=== PATIENT | female | born 1955 | race Caucasian/White ===

== ENCOUNTER 2019-02-04 18:42 | Inpatient (IN) | payer BC ==
[~2019-02-04] VITALS: Ht 160 cm; Wt 97.5 kg
[~2019-02-04 18:42] MED LIST: LEVO100T9 PO
[2019-02-04 18:44] VITALS: BP_SYST 132
[2019-02-04] MEDS ORDERED: MORPHINE 2 MG/ML INJ. SYRINGE IM ONE (20:30)
[2019-02-04] MEDS ORDERED: fentaNYL CITRATE/PF 100 MCG/2 ML AMP IVP ONE ×5 (21:15→23:00)
[2019-02-04 21:16] LABS: BASOPHILS # (AUTO) 0.1 K/uL (0.0-0.2); BASOPHILS % (AUTO) 0.8 % (0.0-2.0); EOSINOPHILS # (AUTO) 0.3 K/uL (0.0-0.4); EOSINOPHILS % (AUTO) 3.4 % (0.0-4.0); HEMOGLOBIN 15.3 g/dL (12.0-16.0); LYMPHOCYTES # (AUTO) 1.7 K/uL (1.0-5.5); LYMPHOCYTES % (AUTO) 19.6 % (20.5-51.5); MEAN CORPUSCULAR HEMOGLOBIN 30 pg (27-31); MEAN CORPUSCULAR HGB CONC 34 % (32-36); MEAN CORPUSCULAR VOLUME 87 fL (79.0-98.0); MONOCYTES # (AUTO) 0.6 K/uL (0.0-1.0); MONOCYTES % (AUTO) 6.6 % (1.7-9.3); NEUTROPHILS # (AUTO) 5.9 K/uL (1.8-7.7); NEUTROPHILS % (AUTO) 69.6 % (40.0-70.0); PLATELET COUNT (AUTO) 343 K/uL (130-430); RED BLOOD CELL COUNT(AUTO) 5.15 MIL/uL (4.2-6.2); RED CELL DISTRIBUTION WIDTH 14.1 % (9.0-15.0); WHITE BLOOD COUNT (AUTO) 8.5 K/uL (4.8-10.8)
[2019-02-04 21:29] LABS: CALCIUM 9.2 mg/dL (8.4-11.0); CREATININE 0.97 mg/dL (0.55-1.30); POTASSIUM 3.7 mmol/L (3.5-5.1)
[2019-02-04 21:34] LABS: ALBUMIN 4.1 g/dL (3.4-4.8); TOTAL BILIRUBIN 0.4 mg/dL (0.0-1.0)
[2019-02-05] MEDS ORDERED: MORPHINE 2 MG/ML INJ. SYRINGE IVP PRN ×3 (00:30→06:30)
[2019-02-05] MEDS ORDERED: HEPARIN SODIUM,PORCINE 5000 UNITS/ML VIAL SUBCUT SCH ×2 (00:30→02:30)
[2019-02-05 01:54] VITALS: BP_SYST 128
[2019-02-05] MEDS: NACL 0.9% 1,000 ML IV SCH (02:46)
[2019-02-05] MEDS ORDERED: KETOROLAC TROMETHAMINE 15 MG VIAL IVP PRN (05:15)
[2019-02-05] MEDS ORDERED: ZOLPIDEM TARTRATE 5 MG TABLET PO PRN (06:30)
[2019-02-05] MEDS ORDERED: LORazepam 2 MG/ML VIAL IVP PRN (06:30)
[2019-02-05] MEDS ORDERED: ONDANSETRON HCL 4 MG/2 ML VIAL IVP PRN (06:30)
[2019-02-05] MEDS ORDERED: DOCUSATE SODIUM 100 MG CAPSULE PO PRN (06:30)
[2019-02-05] MEDS ORDERED: MAGNESIUM SULFATE 50 ML IV PRN (06:30)
[2019-02-05] MEDS ORDERED: MUPIROCIN 2% TOPICAL OINTMENT 22 GM NS PRN (06:30)
[2019-02-05] MEDS ORDERED: POTASSIUM CHLORIDE 20 MEQ TAB.PRT.SR PO PRN (06:30)
[2019-02-05] MEDS: HEPARIN SODIUM,PORCINE 5000 UNITS/ML VIAL SUBCUT SCH (10:23)
[2019-02-05] MEDS: KETOROLAC TROMETHAMINE 15 MG VIAL IVP PRN ×4 (10:27→23:47)
[2019-02-05] MEDS ORDERED: LEVOTHYROXINE SODIUM 0.05 MG TABLET PO ONE (11:30)
[2019-02-05 12:45] VITALS: BP_SYST 131
[2019-02-05] MEDS ORDERED: ROCURONIUM BROMIDE 10 MG/ML (ZEMURON) IV ONE (13:30)
[2019-02-05] MEDS ORDERED: PROPOFOL 200MG/ 20ML VIAL (DIPRIVAN) IV ONE (13:30)
[2019-02-05] MEDS ORDERED: SEVOFLURANE 15 MIN GAS INH ONE (13:30)
[2019-02-05] MEDS ORDERED: MIDAZOLAM HCL 5 MG/5 ML VIAL IVP ONE (13:30)
[2019-02-05] MEDS ORDERED: LR 1,000 ML IV.SOLN IV ONE (13:30)
[2019-02-05] MEDS ORDERED: ONDANSETRON HCL 4 MG/2 ML VIAL IVP ONE (13:30)
[2019-02-05] MEDS ORDERED: NS IRRIG SOLN 1000 ML IR ONE (13:30)
[2019-02-05] MEDS ORDERED: BUPIVACAINE /DEX PF 0.75% SPINAL 2 ML AMP INJ ONE (13:30)
[2019-02-05] MEDS ORDERED: fentaNYL CITRATE 250 MCG/5 ML AMP IV ONE (13:30)
[2019-02-05] MEDS ORDERED: BUPIVACAINE LIPOSOME/PF 266 MG/20 ML VIAL INFIL ONE (13:30)
[2019-02-05] MEDS: ACETAMINOPHEN 325 MG TABLET PO PRN ×2 (14:49→21:09)
[2019-02-05 16:41] VITALS: BP_SYST 139
[2019-02-05 20:00] VITALS: BP_SYST 144
[2019-02-05] MEDS: clonazePAM 0.5 MG TABLET PO SCH (21:08)
[2019-02-06 00:12] VITALS: BP_SYST 125
[2019-02-06] MEDS: HEPARIN SODIUM,PORCINE 5000 UNITS/ML VIAL SUBCUT SCH (00:25)
[2019-02-06] MEDS: NACL 0.9% 1,000 ML IV SCH ×3 (00:50→18:31)
[2019-02-06 01:19] LABS: BILIRUBIN,URINE NEGATIVE (NEGATIVE); BLOOD, URINE NEGATIVE (NEGATIVE); CLARITY/URINE CLEAR (CLEAR); COLOR,URINE YELLOW (YELLOW); GLUCOSE,URINE NEGATIVE (NEGATIVE); KETONES,URINE NEGATIVE (NEGATIVE); LEUKOCYTE ESTERASE ,URINE NEGATIVE (NEGATIVE); NITRITE, URINE NEGATIVE (NEGATIVE); PROTEIN URINE NEGATIVE (NEGATIVE); UROBILINOGEN,URINE 0.2 (0.2-1.0)
[2019-02-06] MEDS: KETOROLAC TROMETHAMINE 15 MG VIAL IVP PRN ×5 (05:17→22:34)
[2019-02-06] MEDS ORDERED: COMMUNICATION ORDER XX ONE (05:41)
[2019-02-06 06:37] LABS: BASOPHILS % (AUTO) 0.7 % (0.0-2.0); EOSINOPHILS # (AUTO) 0.4 K/uL (0.0-0.4); EOSINOPHILS % (AUTO) 6.4 % (0.0-4.0); HEMATOCRIT 40.3 % (36-48); HEMOGLOBIN 13.7 g/dL (12.0-16.0); LYMPHOCYTES # (AUTO) 2.5 K/uL (1.0-5.5); LYMPHOCYTES % (AUTO) 36.1 % (20.5-51.5); MEAN CORPUSCULAR HEMOGLOBIN 30 pg (27-31); MEAN CORPUSCULAR HGB CONC 34 % (32-36); MEAN CORPUSCULAR VOLUME 88 fL (79.0-98.0); MONOCYTES # (AUTO) 0.8 K/uL (0.0-1.0); NEUTROPHILS # (AUTO) 3.1 K/uL (1.8-7.7); NEUTROPHILS % (AUTO) 44.8 % (40.0-70.0); PLATELET COUNT (AUTO) 277 K/uL (130-430); RED CELL DISTRIBUTION WIDTH 13.8 % (9.0-15.0); WHITE BLOOD COUNT (AUTO) 6.9 K/uL (4.8-10.8)
[2019-02-06 06:47] LABS: CALCIUM 8.1 mg/dL (8.4-11.0); CREATININE 0.82 mg/dL (0.55-1.30); POTASSIUM 3.6 mmol/L (3.5-5.1)
[2019-02-06] MEDS: LEVOTHYROXINE SODIUM 0.05 MG TABLET PO SCH (07:00)
[2019-02-06 08:00] VITALS: BP_SYST 124
[2019-02-06 12:47] VITALS: BP_SYST 132
[2019-02-06 16:17] VITALS: BP_SYST 146
[2019-02-06 20:00] VITALS: BP_SYST 148
[2019-02-06] MEDS: clonazePAM 0.5 MG TABLET PO SCH (20:37)
[2019-02-06] MEDS: ACETAMINOPHEN 325 MG TABLET PO PRN (20:39)
[2019-02-06] MEDS ORDERED: HEPARIN SODIUM,PORCINE 5000 UNITS/ML VIAL SUBCUT SCH (21:00)
[2019-02-07 01:32] VITALS: BP_SYST 131
[2019-02-07] MEDS: KETOROLAC TROMETHAMINE 15 MG VIAL IVP PRN ×4 (02:36→19:08)
[2019-02-07 06:45] LABS: BASOPHILS % (AUTO) 0.6 % (0.0-2.0); EOSINOPHILS # (AUTO) 0.5 K/uL (0.0-0.4); EOSINOPHILS % (AUTO) 6.7 % (0.0-4.0); HEMATOCRIT 40.7 % (36-48); HEMOGLOBIN 13.5 g/dL (12.0-16.0); LYMPHOCYTES # (AUTO) 1.9 K/uL (1.0-5.5); LYMPHOCYTES % (AUTO) 25.6 % (20.5-51.5); MEAN CORPUSCULAR HEMOGLOBIN 29 pg (27-31); MEAN CORPUSCULAR HGB CONC 33 % (32-36); MEAN CORPUSCULAR VOLUME 89 fL (79.0-98.0); MONOCYTES # (AUTO) 0.7 K/uL (0.0-1.0); NEUTROPHILS # (AUTO) 4.2 K/uL (1.8-7.7); NEUTROPHILS % (AUTO) 57.1 % (40.0-70.0); PLATELET COUNT (AUTO) 254 K/uL (130-430); RED BLOOD CELL COUNT(AUTO) 4.59 MIL/uL (4.2-6.2); RED CELL DISTRIBUTION WIDTH 13.9 % (9.0-15.0); WHITE BLOOD COUNT (AUTO) 7.3 K/uL (4.8-10.8)
[2019-02-07 06:48] LABS: CALCIUM 8.1 mg/dL (8.4-11.0); CREATININE 0.73 mg/dL (0.55-1.30); POTASSIUM 3.7 mmol/L (3.5-5.1)
[2019-02-07 06:51] LABS: PROTHROMBIN TIME 10.4 SECS (9.5-12.5)
[2019-02-07] MEDS: LEVOTHYROXINE SODIUM 0.05 MG TABLET PO SCH (07:00)
[2019-02-07 08:00] VITALS: BP_SYST 140
[2019-02-07] MEDS: NACL 0.9% 1,000 ML IV SCH (11:33)
[2019-02-07] MEDS ORDERED: ENOXAPARIN SODIUM 40 MG/0.4 ML SYRINGE SUBCUT ONE (12:00)
[2019-02-07] MEDS ORDERED: POLYMYXIN 500,000/BACIT.10,000 UNITS in NS IRR 1 L IR ONE (13:45)
[2019-02-07] MEDS ORDERED: LR 1,000 ML IV SCH (14:40)
[2019-02-07] MEDS ORDERED: HYDROmorphone 1 MG INJ. 1 MG/ML AMPUL IVP PRN (14:45)
[2019-02-07] MEDS ORDERED: HYDROmorphone 2 MG/ML VIAL IVP PRN (14:45)
[2019-02-07] MEDS ORDERED: BUPIVACAINE LIPOSOME/PF 266 MG/20 ML VIAL INFIL ONE (15:36)
[2019-02-07 16:00] VITALS: BP_SYST 159
[2019-02-07] MEDS: METOCLOPRAMIDE HCL 10 MG/2 ML VIAL IVP PRN ×2 (16:04→16:20)
[2019-02-07] MEDS ORDERED: HYDROcodone/ACETAMIN 5-325 MG TAB (NORCO/ VICODIN) PO PRN (16:15)
[2019-02-07] MEDS ORDERED: METOCLOPRAMIDE HCL 10 MG/2 ML VIAL ONE (16:17)
[2019-02-07] MEDS: HYDROmorphone 1 MG INJ. 1 MG/ML AMPUL IVP PRN ×2 (16:55→17:10)
[2019-02-07] MEDS ORDERED: HYDROmorphone 1 MG INJ. 1 MG/ML AMPUL ONE (17:03)
[2019-02-07 17:36] VITALS: BP_SYST 151
[2019-02-07 20:00] VITALS: BP_SYST 125
[2019-02-07] MEDS: clonazePAM 0.5 MG TABLET PO SCH (21:56)
[2019-02-07] MEDS: ACETAMINOPHEN 325 MG TABLET PO PRN (21:56)
[2019-02-07] MEDS: CEFAZOLIN 1 GM IVPB PREMIX 50 ML IV SCH (21:57)
[2019-02-08] MEDS: KETOROLAC TROMETHAMINE 15 MG VIAL IVP PRN ×5 (01:47→20:59)
[2019-02-08 03:35] VITALS: BP_SYST 133
[2019-02-08] MEDS: ACETAMINOPHEN 325 MG TABLET PO PRN ×2 (03:55→13:42)
[2019-02-08] MEDS: LEVOTHYROXINE SODIUM 0.05 MG TABLET PO SCH (06:05)
[2019-02-08] MEDS: CEFAZOLIN 1 GM IVPB PREMIX 50 ML IV SCH (06:05)
[2019-02-08 07:12] LABS: BASOPHILS % (AUTO) 0.3 % (0.0-2.0); EOSINOPHILS # (AUTO) 0.2 K/uL (0.0-0.4); EOSINOPHILS % (AUTO) 2.8 % (0.0-4.0); HEMATOCRIT 38.1 % (36-48); HEMOGLOBIN 12.9 g/dL (12.0-16.0); LYMPHOCYTES # (AUTO) 1.5 K/uL (1.0-5.5); LYMPHOCYTES % (AUTO) 17.6 % (20.5-51.5); MEAN CORPUSCULAR HEMOGLOBIN 30 pg (27-31); MEAN CORPUSCULAR HGB CONC 34 % (32-36); MEAN CORPUSCULAR VOLUME 88 fL (79.0-98.0); MONOCYTES # (AUTO) 0.9 K/uL (0.0-1.0); MONOCYTES % (AUTO) 10.5 % (1.7-9.3); NEUTROPHILS # (AUTO) 5.9 K/uL (1.8-7.7); NEUTROPHILS % (AUTO) 68.8 % (40.0-70.0); PLATELET COUNT (AUTO) 250 K/uL (130-430); RED BLOOD CELL COUNT(AUTO) 4.34 MIL/uL (4.2-6.2); RED CELL DISTRIBUTION WIDTH 13.9 % (9.0-15.0); WHITE BLOOD COUNT (AUTO) 8.6 K/uL (4.8-10.8)
[2019-02-08 07:41] LABS: CALCIUM 8.4 mg/dL (8.4-11.0); CREATININE 0.93 mg/dL (0.55-1.30); POTASSIUM 3.5 mmol/L (3.5-5.1)
[2019-02-08 08:14] VITALS: BP_SYST 122
[2019-02-08] MEDS: ENOXAPARIN SODIUM 40 MG/0.4 ML SYRINGE SUBCUT SCH (08:47)
[2019-02-08] MEDS: NACL 0.9% 1,000 ML IV SCH ×2 (10:06)
[2019-02-08 12:15] VITALS: BP_SYST 133
[2019-02-08 16:35] VITALS: BP_SYST 142
[2019-02-08 20:50] VITALS: BP_SYST 128
[2019-02-08] MEDS: clonazePAM 0.5 MG TABLET PO SCH (20:59)
[2019-02-09 00:23] VITALS: BP_SYST 126
[2019-02-09] MEDS: NACL 0.9% 1,000 ML IV SCH ×2 (00:34→20:16)
[2019-02-09] MEDS: KETOROLAC TROMETHAMINE 15 MG VIAL IVP PRN ×3 (01:11→20:26)
[2019-02-09] MEDS: LEVOTHYROXINE SODIUM 0.05 MG TABLET PO SCH (06:37)
[2019-02-09 06:57] LABS: CALCIUM 7.7 mg/dL (8.4-11.0); CHLORIDE 105 mmol/L (98-107); GLUCOSE 96 mg/dL (70-99); POTASSIUM 3.4 mmol/L (3.5-5.1); SODIUM SERUM 134 mmol/L (136-145); UREA NITROGEN, BLOOD 12 mg/dL (8-21)
[2019-02-09 06:58] LABS: BASOPHILS % (AUTO) 0.6 % (0.0-2.0); EOSINOPHILS # (AUTO) 0.4 K/uL (0.0-0.4); EOSINOPHILS % (AUTO) 5.4 % (0.0-4.0); HEMATOCRIT 33.9 % (36-48); HEMOGLOBIN 11.9 g/dL (12.0-16.0); LYMPHOCYTES # (AUTO) 1.9 K/uL (1.0-5.5); LYMPHOCYTES % (AUTO) 24.7 % (20.5-51.5); MEAN CORPUSCULAR HEMOGLOBIN 31 pg (27-31); MEAN CORPUSCULAR HGB CONC 35 % (32-36); MEAN CORPUSCULAR VOLUME 88 fL (79.0-98.0); MONOCYTES # (AUTO) 0.9 K/uL (0.0-1.0); MONOCYTES % (AUTO) 11.9 % (1.7-9.3); NEUTROPHILS # (AUTO) 4.5 K/uL (1.8-7.7); NEUTROPHILS % (AUTO) 57.4 % (40.0-70.0); PLATELET COUNT (AUTO) 234 K/uL (130-430); RED BLOOD CELL COUNT(AUTO) 3.87 MIL/uL (4.2-6.2); RED CELL DISTRIBUTION WIDTH 13.9 % (9.0-15.0); WHITE BLOOD COUNT (AUTO) 7.8 K/uL (4.8-10.8)
[2019-02-09 06:59] LABS: ANION GAP < 3 (5-15); GFR AFRICAN AMERICAN 93 mL/min (>90)
[2019-02-09 08:00] VITALS: BP_SYST 135
[2019-02-09] MEDS: ENOXAPARIN SODIUM 40 MG/0.4 ML SYRINGE SUBCUT SCH (09:17)
[2019-02-09 12:26] VITALS: BP_SYST 118
[2019-02-09] MEDS ORDERED: HYDROCORTISONE 1%, 28.35 GM TOPICAL CREAM TP PRN (13:00)
[2019-02-09 16:25] VITALS: BP_SYST 146
[2019-02-09 20:00] VITALS: BP_SYST 130
[2019-02-09] MEDS: clonazePAM 0.5 MG TABLET PO SCH (20:15)
[2019-02-10 00:33] VITALS: BP_SYST 106
[2019-02-10] MEDS: KETOROLAC TROMETHAMINE 15 MG VIAL IVP PRN (02:15)
[2019-02-10] MEDS: LEVOTHYROXINE SODIUM 0.05 MG TABLET PO SCH (06:52)
[2019-02-10 08:00] VITALS: BP_SYST 140
[2019-02-10] MEDS: ENOXAPARIN SODIUM 40 MG/0.4 ML SYRINGE SUBCUT SCH (08:13)
[2019-02-10 08:48] VITALS: BP_SYST 106
[2019-02-10] MEDS: clonazePAM 0.5 MG TABLET PO PRN (09:30)
[2019-02-10] MEDS: ACETAMINOPHEN 325 MG TABLET PO PRN (09:30)
[2019-02-10 09:55] LABS: BASOPHILS # (AUTO) 0.1 K/uL (0.0-0.2); EOSINOPHILS # (AUTO) 0.5 K/uL (0.0-0.4); HEMATOCRIT 35.6 % (36-48); MEAN CORPUSCULAR VOLUME 88 fL (79.0-98.0); NEUTROPHILS # (AUTO) 4.4 K/uL (1.8-7.7)
[2019-02-10 10:10] LABS: CALCIUM 8.1 mg/dL (8.4-11.0); CREATININE 0.94 mg/dL (0.55-1.30); POTASSIUM 3.6 mmol/L (3.5-5.1)
[2019-02-10 10:35] LABS: HEMOGLOBIN 12.4 g/dL (12.0-16.0); LYMPHOCYTES % (AUTO) 22.5 % (20.5-51.5); MEAN CORPUSCULAR HEMOGLOBIN 31 pg (27-31); MEAN CORPUSCULAR HGB CONC 35 % (32-36); NEUTROPHILS % (AUTO) 61.2 % (40.0-70.0); PLATELET COUNT (AUTO) 271 K/uL (130-430); RED BLOOD CELL COUNT(AUTO) 4.06 MIL/uL (4.2-6.2); RED CELL DISTRIBUTION WIDTH 13.6 % (9.0-15.0); WHITE BLOOD COUNT (AUTO) 7.2 K/uL (4.8-10.8)
[2019-02-10 10:36] LABS: BASOPHILS % (AUTO) 0.7 % (0.0-2.0); EOSINOPHILS % (AUTO) 6.9 % (0.0-4.0); LYMPHOCYTES # (AUTO) 1.6 K/uL (1.0-5.5); MONOCYTES # (AUTO) 0.6 K/uL (0.0-1.0); MONOCYTES % (AUTO) 8.7 % (1.7-9.3)
[2019-02-10] MEDS ORDERED: KETOROLAC TROMETHAMINE 10 MG TABLET (TORADOL) PO PRN (12:00)
[2019-02-10] MEDS ORDERED: ESTRADIOL PATCH TD SCH (12:00)
[2019-02-10] MEDS ORDERED: DIPHENHYDRAMINE HCL/ZINC ACET 28.3 GM CREAM.GM. TP PRN (12:15)
[2019-02-10] MEDS: ALBUTEROL SULFATE 0.083% 2.5 MG/3 ML VIAL.NEB INH SCH (20:57)
[2019-02-10] MEDS: BUDESONIDE 0.5 MG/2 ML AMPUL.NEB INH SCH (20:57)
[2019-02-10] MEDS: clonazePAM 0.5 MG TABLET PO SCH (22:24)
[2019-02-10] MEDS: PREGABALIN 75 MG CAPSULE (LYRICA) PO SCH (22:25)
[2019-02-11] MEDS: ALBUTEROL SULFATE 0.083% 2.5 MG/3 ML VIAL.NEB INH SCH ×4 (01:00→20:07)
[2019-02-11 01:37] VITALS: BP_SYST 117
[2019-02-11] MEDS ORDERED: KETOROLAC TROMETHAMINE 30 MG VIAL IVP PRN (03:30)
[2019-02-11] MEDS: clonazePAM 0.5 MG TABLET PO PRN (03:58)
[2019-02-11] MEDS: ACETAMINOPHEN 325 MG TABLET PO PRN ×3 (03:59→04:02)
[2019-02-11] MEDS: LEVOTHYROXINE SODIUM 0.05 MG TABLET PO SCH (07:00)
[2019-02-11] MEDS: BUDESONIDE 0.5 MG/2 ML AMPUL.NEB INH SCH ×2 (07:08→20:07)
[2019-02-11 08:00] VITALS: BP_SYST 136
[2019-02-11] MEDS ORDERED: KETOROLAC TROMETHAMINE 15 MG VIAL IVP PRN (09:00)
[2019-02-11] MEDS ORDERED: PROG100C11 PO (09:09)
[2019-02-11] MEDS: ENOXAPARIN SODIUM 40 MG/0.4 ML SYRINGE SUBCUT SCH (09:53)
[2019-02-11] MEDS: KETOROLAC TROMETHAMINE 10 MG TABLET (TORADOL) PO SCH ×2 (09:58→23:36)
[2019-02-11] MEDS ORDERED: THYROID PO ONE (10:45)
[2019-02-11] MEDS ORDERED: PROGESTERONE 100 MG PO ONE (11:00)
[2019-02-11 12:00] VITALS: BP_SYST 128
[2019-02-11] MEDS ORDERED: ESTRADIOL PATCH TD SCH (13:27)
[2019-02-11 20:00] VITALS: BP_SYST 134
[2019-02-11] MEDS: PATIENT'S OWN CAP PO SCH (21:45)
[2019-02-11] MEDS: PREGABALIN 75 MG CAPSULE (LYRICA) PO SCH (22:32)
[2019-02-11] MEDS: clonazePAM 0.5 MG TABLET PO SCH (22:32)
[2019-02-12] VITALS: BP_SYST 125
[2019-02-12] MEDS: ALBUTEROL SULFATE 0.083% 2.5 MG/3 ML VIAL.NEB INH SCH ×4 (01:00→19:58)
[2019-02-12] MEDS: COMMUNICATION ORDER XX SCH (06:00)
[2019-02-12] MEDS: THYROID PO SCH (06:13)
[2019-02-12] MEDS: ACETAMINOPHEN 325 MG TABLET PO PRN (06:53)
[2019-02-12] MEDS: BUDESONIDE 0.5 MG/2 ML AMPUL.NEB INH SCH ×2 (07:30→19:59)
[2019-02-12 08:00] VITALS: BP_SYST 146
[2019-02-12] MEDS: KETOROLAC TROMETHAMINE 10 MG TABLET (TORADOL) PO SCH ×3 (08:46→21:13)
[2019-02-12] MEDS: ENOXAPARIN SODIUM 40 MG/0.4 ML SYRINGE SUBCUT SCH (08:47)
[2019-02-12] MEDS ORDERED: PROGESTERONE 100 MG PO SCH (09:00)
[2019-02-12 12:40] VITALS: BP_SYST 155
[2019-02-12] MEDS ORDERED: KLO.5 PO ×2 (14:32)
[2019-02-12] MEDS ORDERED: PREG75CA PO (14:32)
[2019-02-12] MEDS ORDERED: ESTR1PAT7 TD (14:32)
[2019-02-12] MEDS ORDERED: BUDE0.5A INH (14:32)
[2019-02-12] MEDS ORDERED: [UNRECOGNIZED DRUG - OTHER] PO (14:32)
[2019-02-12] MEDS ORDERED: ALBU2.5V7 INH (14:32)
[2019-02-12] MEDS ORDERED: DOCU-144 PO (14:32)
[2019-02-12] MEDS ORDERED: Diphenhydramine Hcl/Zinc Acet TP (14:32)
[2019-02-12] MEDS ORDERED: KETO10TA2 PO (14:32)
[2019-02-12] MEDS ORDERED: LOVI40 SUBCUT (14:32)
[2019-02-12 16:14] VITALS: BP_SYST 134
[2019-02-12 20:00] VITALS: BP_SYST 135
[2019-02-12] MEDS: PREGABALIN 75 MG CAPSULE (LYRICA) PO SCH (21:11)
[2019-02-12] MEDS: clonazePAM 0.5 MG TABLET PO SCH (21:12)
[2019-02-12] MEDS: PATIENT'S OWN CAP PO SCH (22:28)
[2019-02-13] MEDS: ALBUTEROL SULFATE 0.083% 2.5 MG/3 ML VIAL.NEB INH SCH ×4 (01:00→20:10)
[2019-02-13] MEDS: COMMUNICATION ORDER XX SCH (06:00)
[2019-02-13 06:30] VITALS: BP_SYST 140
[2019-02-13] MEDS: THYROID PO SCH ×2 (06:43→06:51)
[2019-02-13] MEDS: BUDESONIDE 0.5 MG/2 ML AMPUL.NEB INH SCH ×2 (07:24→20:10)
[2019-02-13 08:00] VITALS: BP_SYST 141
[2019-02-13] MEDS: KETOROLAC TROMETHAMINE 10 MG TABLET (TORADOL) PO SCH ×3 (09:00→22:13)
[2019-02-13] MEDS: ENOXAPARIN SODIUM 40 MG/0.4 ML SYRINGE SUBCUT SCH (09:03)
[2019-02-13 12:34] VITALS: BP_SYST 130
[2019-02-13 16:00] VITALS: BP_SYST 142
[2019-02-13 18:10] VITALS: BP_SYST 142
[2019-02-13 20:00] VITALS: BP_SYST 127
[2019-02-13] MEDS: PATIENT'S OWN CAP PO SCH (21:00)
[2019-02-13] MEDS: clonazePAM 0.5 MG TABLET PO SCH (22:10)
[2019-02-13] MEDS: PREGABALIN 75 MG CAPSULE (LYRICA) PO SCH (22:10)
[2019-02-14] MEDS: ALBUTEROL SULFATE 0.083% 2.5 MG/3 ML VIAL.NEB INH SCH ×4 (00:40→19:40)
[2019-02-14 00:50] VITALS: BP_SYST 132
[2019-02-14] MEDS: COMMUNICATION ORDER XX SCH (06:00)
[2019-02-14] MEDS: THYROID PO SCH (06:15)
[2019-02-14] MEDS: BUDESONIDE 0.5 MG/2 ML AMPUL.NEB INH SCH ×2 (07:10→19:59)
[2019-02-14 08:00] VITALS: BP_SYST 107
[2019-02-14] MEDS: ENOXAPARIN SODIUM 40 MG/0.4 ML SYRINGE SUBCUT SCH (09:20)
[2019-02-14] MEDS: clonazePAM 0.5 MG TABLET PO PRN (09:43)
[2019-02-14] MEDS: KETOROLAC TROMETHAMINE 10 MG TABLET (TORADOL) PO SCH ×3 (09:44→22:17)
[2019-02-14 12:41] VITALS: BP_SYST 111
[2019-02-14 16:14] VITALS: BP_SYST 132
[2019-02-14 20:00] VITALS: BP_SYST 113
[2019-02-14] MEDS: clonazePAM 0.5 MG TABLET PO SCH (22:15)
[2019-02-14] MEDS: PREGABALIN 75 MG CAPSULE (LYRICA) PO SCH (22:15)
[2019-02-14] MEDS: PATIENT'S OWN CAP PO SCH (22:16)
[2019-02-15] VITALS: BP_SYST 104
[2019-02-15] MEDS: ALBUTEROL SULFATE 0.083% 2.5 MG/3 ML VIAL.NEB INH SCH (00:47)
== END 2019-02-15 21:13 | DRG 494 ==
LOC: SED 18:42 → SMU 02-05 00:19
PROVIDERS: ADMIT General Practice; ATTEND General Practice
PROC: 0QSG04Z Reposition Right Tibia with Internal Fixation Device, Open Approach (ICD-10-PCS; 2019-02-07)
PROC: 0QSJ04Z Reposition Right Fibula with Internal Fixation Device, Open Approach (ICD-10-PCS; principal; 2019-02-07 12:30)
DX: S82.841A Displaced bimalleolar fracture of right lower leg, initial encounter for closed fracture (principal); E03.9 Hypothyroidism, unspecified; M79.7 Fibromyalgia; G56.00 Carpal tunnel syndrome, unspecified upper limb; G89.4 Chronic pain syndrome; L30.9 Dermatitis, unspecified; F41.9 Anxiety disorder, unspecified; M19.90 Unspecified osteoarthritis, unspecified site; M47.812 Spondylosis without myelopathy or radiculopathy, cervical region; R26.81 Unsteadiness on feet; E66.01 Morbid (severe) obesity due to excess calories; K21.9 Gastro-esophageal reflux disease without esophagitis; M47.816 Spondylosis without myelopathy or radiculopathy, lumbar region; G62.9 Polyneuropathy, unspecified; W01.0XXA Fall on same level from slipping, tripping and stumbling without subsequent striking against object, initial encounter; Y93.89 Activity, other specified; Y92.89 Other specified places as the place of occurrence of the external cause; Y99.8 Other external cause status; Z68.38 Body mass index [BMI] 38.0-38.9, adult; Z79.899 Other long term (current) drug therapy; Z88.1 Allergy status to other antibiotic agents; Z88.7 Allergy status to serum and vaccine; Z88.8 Allergy status to other drugs, medicaments and biological substances
CPT/HCPCS: 36415; 71045; 73590-TC; 76000; 80048; 80053; 81003; 83036; 83735-TC; 85025; 85610-TC; 85730-TC; 87081; 93005; 94010; 94640; 94760; 96374; 96376; 96379; 97110-GP; 97116-GP; 97530-GP; 99285; C1713; C1769; C9290; J0690; J1170; J1644; J1650; J1885; J2250; J2270; J2405; J2704; J2765; J3010; J3490; J7030; J7120; J7613; J7626

== ENCOUNTER 2019-07-26 10:05 | Day surgery (SDC) | payer BC, SELFPAY ==
[2019-07-24 11:15] LABS: BILIRUBIN,URINE NEGATIVE (NEGATIVE); BLOOD, URINE NEGATIVE (NEGATIVE); CLARITY/URINE CLEAR (CLEAR); COLOR,URINE YELLOW (YELLOW); GLUCOSE,URINE NEGATIVE (NEGATIVE); KETONES,URINE NEGATIVE (NEGATIVE); LEUKOCYTE ESTERASE ,URINE NEGATIVE (NEGATIVE); NITRITE, URINE NEGATIVE (NEGATIVE); PROTEIN URINE NEGATIVE (NEGATIVE); UROBILINOGEN,URINE 0.2 (0.2-1.0)
[2019-07-24 11:16] LABS: CALCIUM 8.7 mg/dL (8.4-11.0); CREATININE 0.93 mg/dL (0.55-1.30); POTASSIUM 3.5 mmol/L (3.5-5.1)
[2019-07-24 11:25] LABS: PROTHROMBIN TIME 10.2 SECS (9.5-12.5)
[2019-07-24 11:27] LABS: BASOPHILS % (AUTO) 0.7 % (0.0-2.0); EOSINOPHILS # (AUTO) 0.3 K/uL (0.0-0.4); EOSINOPHILS % (AUTO) 4.9 % (0.0-4.0); HEMATOCRIT 42.8 % (36-48); HEMOGLOBIN 14.2 g/dL (12.0-16.0); LYMPHOCYTES # (AUTO) 2.2 K/uL (1.0-5.5); LYMPHOCYTES % (AUTO) 33.5 % (20.5-51.5); MEAN CORPUSCULAR HEMOGLOBIN 29 pg (27-31); MEAN CORPUSCULAR HGB CONC 33 % (32-36); MEAN CORPUSCULAR VOLUME 87 fL (79.0-98.0); MONOCYTES # (AUTO) 0.6 K/uL (0.0-1.0); MONOCYTES % (AUTO) 8.6 % (1.7-9.3); NEUTROPHILS # (AUTO) 3.4 K/uL (1.8-7.7); NEUTROPHILS % (AUTO) 52.3 % (40.0-70.0); PLATELET COUNT (AUTO) 480 K/uL (130-430); RED BLOOD CELL COUNT(AUTO) 4.93 MIL/uL (4.2-6.2); RED CELL DISTRIBUTION WIDTH 13.8 % (9.0-15.0); WHITE BLOOD COUNT (AUTO) 6.4 K/uL (4.8-10.8)
[~2019-07-26] VITALS: Ht 160 cm; Wt 93.0 kg
[~2019-07-26 10:05] MED LIST changes: +ALBU2.5V7 INH; +BUDE0.5A INH; +DOCU-144 PO; +Diphenhydramine Hcl/Zinc Acet TP; +ESTR1PAT7 TD; +KETO10TA2 PO; +KLO.5 PO; -LEVO100T9 PO; +LOVI40 SUBCUT; +PREG75CA PO; +PROG100C11 PO; +[UNRECOGNIZED DRUG - OTHER] PO
[2019-07-26] MEDS ORDERED: DEXAMETHASONE SOD PHOSPHATE 4 MG/ML VIAL ONE (13:49)
[2019-07-26] MEDS ORDERED: KETOROLAC TROMETHAMINE 30 MG VIAL ONE (13:49)
[2019-07-26] MEDS ORDERED: fentaNYL CITRATE/PF 100 MCG/2 ML AMP ONE (13:49)
[2019-07-26] MEDS ORDERED: NS IRRIG SOLN 1000 ML IR ONE (13:49)
[2019-07-26] MEDS ORDERED: LR 1,000 ML IV.SOLN IV ONE (13:49)
[2019-07-26] MEDS ORDERED: PROPOFOL 200MG/ 20ML VIAL (DIPRIVAN) IV ONE (13:49)
[2019-07-26] MEDS ORDERED: SEVOFLURANE 15 MIN GAS INH ONE (13:49)
[2019-07-26] MEDS ORDERED: HYDROmorphone 1 MG INJ. 1 MG/ML AMPUL IVP PRN (14:00)
[2019-07-26] MEDS ORDERED: HYDROmorphone 1 MG INJ. 1 MG/ML AMPUL ONE (14:12)
[2019-07-26] MEDS ORDERED: ONDANSETRON HCL 4 MG/2 ML VIAL IVP ONE (16:15)
[2019-07-26] MEDS ORDERED: ONDANSETRON HCL 4 MG/2 ML VIAL ONE (16:33)
[2019-07-26 18:07] VITALS: BP_SYST 121
== END 2019-07-26 16:50 | disposition home or self-care (01) ==
LOC: SDS 10:05 → SMU 10:08 → SDS 14:50
PROVIDERS: ATTEND Orthopaedic Surgery
DX: T84.84XA Pain due to internal orthopedic prosthetic devices, implants and grafts, initial encounter (principal); J45.909 Unspecified asthma, uncomplicated; E03.9 Hypothyroidism, unspecified; Z88.1 Allergy status to other antibiotic agents; Z88.8 Allergy status to other drugs, medicaments and biological substances; Z98.890 Other specified postprocedural states; Y83.8 Other surgical procedures as the cause of abnormal reaction of the patient, or of later complication, without mention of misadventure at the time of the procedure; Z79.01 Long term (current) use of anticoagulants
CPT/HCPCS: 20680; 36415; 71046; 80048; 81003; 85025; 85610; 85730; 93005; J1100; J1170; J1885; J2405; J2704; J3010; J7120; U0002